=== PATIENT | female | born 1975 | race Caucasian/White ===

== ENCOUNTER 2020-04-29 13:17 | Emergency (ER) | payer BC, OTHER ==
[~2020-04-29] VITALS: Ht 162.6 cm; Wt 50.3 kg
[2020-04-29 13:21] VITALS: BP 105/74
[2020-04-29] MEDS ORDERED: filgrastim 300mcg inj SQ ONE (13:55)
== END 2020-04-29 14:49 | disposition home or self-care (01) ==
LOC: ER 13:18
DX: D70.1 Agranulocytosis secondary to cancer chemotherapy (principal); T45.1X5A Adverse effect of antineoplastic and immunosuppressive drugs, initial encounter; C50.911 Malignant neoplasm of unspecified site of right female breast; C50.912 Malignant neoplasm of unspecified site of left female breast; Z88.8 Allergy status to other drugs, medicaments and biological substances; Z79.899 Other long term (current) drug therapy; Y92.89 Other specified places as the place of occurrence of the external cause
CPT/HCPCS: 96372; 99283; J1442

== ENCOUNTER 2020-09-19 17:07 | Emergency (ER) | payer OTHER ==
--- NOTE | 2020-09-19 18:30 | NUR ---
PT LBT. STATES TO REGISTRATIN THAT SHE IS NUTRAPENIC AND CAN NOT SIT IN THE ER LOBBY AND WILL WAIT OUTSIDE. PT CALLED TO TRIAGE x3, NIL. TALAT RN NOTIFIED
== END 2020-09-19 18:30 | disposition left against medical advice (07) ==
LOC: ER 17:09
DX: D70.3 Neutropenia due to infection (principal); Z53.21 Procedure and treatment not carried out due to patient leaving prior to being seen by health care provider

== ENCOUNTER 2020-09-19 18:38 | Emergency (ER) | payer OTHER | END 2020-09-19 18:52 | disposition left against medical advice (07) | LOC: ER 18:39 | DX: C43.9 Malignant melanoma of skin, unspecified (principal); Z53.21 Procedure and treatment not carried out due to patient leaving prior to being seen by health care provider ==

== ENCOUNTER 2021-04-25 10:04 | Emergency (ER) | payer OTHER ==
[~2021-04-25] VITALS: Ht 162.6 cm; Wt 56.0 kg
[2021-04-25 10:09] VITALS: BP 135/76
--- NOTE | 2021-04-25 10:48 | NUR ---
Patient reports weakness in leg with swelling; ER provider notified.
[2021-04-25] MEDS ORDERED: cephalexin 500mg capsule PO ONE (13:50)
[2021-04-25] MEDS ORDERED: CEPH-585 PO ×2 (14:04)
[2021-04-25] MEDS ORDERED: clindamycin 150mg capsule PO ONE (14:10)
[2021-04-25] MEDS ORDERED: CLIN150C2 PO (14:10)
== END 2021-04-25 14:24 | disposition home or self-care (01) ==
LOC: ER 10:04
DX: Z48.00 Encounter for change or removal of nonsurgical wound dressing (principal); R10.30 Lower abdominal pain, unspecified; Z85.3 Personal history of malignant neoplasm of breast; Z98.890 Other specified postprocedural states; Z88.8 Allergy status to other drugs, medicaments and biological substances
CPT/HCPCS: 99283

== ENCOUNTER 2022-09-11 00:11 | Emergency (ER) | payer OTHER ==
[~2022-09-11] VITALS: Ht 162.6 cm; Wt 65.0 kg
[2022-09-11 00:15] VITALS: BP 114/73
[2022-09-11] MEDS ORDERED: normal saline 1000ml 1,000 ML IV ONE (01:45)
[2022-09-11 01:52] LABS: BASOPHILS % (AUTO) 0.6 % (0-1); EOSINOPHILS # (AUTO) 0.1 X10'3 (0-0.9); EOSINOPHILS % (AUTO) 3.8 % (0-6); HEMATOCRIT 37.8 % (35.0-45.0); HEMOGLOBIN 12.7 g/dl (12.0-16.0); LYMPHOCYTES # (AUTO) 1.1 X10'3 (1.1-4.8); LYMPHOCYTES % (AUTO) 30.3 % (21-51); MEAN CORPUSCULAR HEMOGLOBIN 29.8 PG (27.0-31.0); MEAN CORPUSCULAR HGB CONC 33.7 g/dL (33.0-36.5); MEAN CORPUSCULAR VOLUME 88.6 FL (78-98); MEAN PLATELET VOLUME 7.2 FL (7.4-10.4); MONOCYTES # (AUTO) 0.2 X10'3 (0-0.9); MONOCYTES % (AUTO) 5.9 % (2-12); NEUTROPHILS # (AUTO) 2.2 X10'3 (1.8-7.7); NEUTROPHILS % (AUTO) 59.4 % (42-75); PLATELET COUNT 98 X10'3 (140-440); RED BLOOD COUNT 4.27 X10'6 (4.20-5.60); RED CELL DISTRIBUTION WIDTH 18.4 % (11.5-14.5); WHITE BLOOD COUNT 3.7 X10'3 (4.5-11.0)
[2022-09-11 02:07] LABS: ALANINE AMINOTRANSFERASE 34 U/L (12-78); ALBUMIN 3.8 G/DL (3.4-5.0); ALBUMIN/GLOBULIN RATIO 1.2 (1.1-1.5); ALKALINE PHOSPHATASE 199 IU/L (46-116); ANION GAP 5 (8-16); ASPARTATE AMINO TRANSFERASE 84 U/L (10-37); BILIRUBIN,TOTAL 0.7 MG/DL (0.1-1.0); BLOOD UREA NITROGEN 16 MG/DL (7-18); BUN/CREATININE RATIO 22.5 (10.0-20.0); CALCIUM 9.2 MG/DL (8.5-10.1); CHLORIDE 105 MMOL/L (99-107); CREATINE KINASE 161 U/L (26-192); CREATININE 0.71 MG/DL (0.40-0.90); GLUCOSE 101 MG/DL (70-104); LIPASE 84 U/L (73-393); POTASSIUM 3.7 MMOL/L (3.5-5.1); SODIUM 140 MMOL/L (135-145); TOTAL CARBON DIOXIDE 29.8 MMOL/L (24-32); TOTAL PROTEIN 7.1 G/DL (6.4-8.2); eGFR 89 ML/MIN
[2022-09-11 02:39] LABS: CLARITY,URINE CLEAR (Clear); COLOR,URINE STRAW (Yellow); GLUCOSE, URINE NEGATIVE (Neg); KETONES,URINE NEGATIVE (Neg); LEUKOCYTE ESTERASE ,URINE NEGATIVE (Neg); NITRITES, URINE NEGATIVE (Neg); OCCULT BLOOD,URINE SMALL (Neg); PROTEIN,URINE NEGATIVE (Neg); UA COLLECTION TYPE NON-SPECIFIED; UROBILINOGEN,URINE 0.2 E.U/dL (0.2-1.0)
[2022-09-11 03:01] LABS: BACTERIA,URINE NONE SEEN /HPF (Neg); MUCUS STRANDS NONE SEEN /LPF (Neg); RBC,URINE 0-2 /HPF (0-2); SQUAMOUS EPITHELIAL CELL,UR FEW /LPF (FEW); WBC,URINE NONE SEEN /HPF (0-4)
== END 2022-09-11 03:08 | disposition home or self-care (01) ==
LOC: ER 00:12
DX: J44.9 Chronic obstructive pulmonary disease, unspecified (principal); E86.0 Dehydration; F17.200 Nicotine dependence, unspecified, uncomplicated; Z88.8 Allergy status to other drugs, medicaments and biological substances; Z79.899 Other long term (current) drug therapy
CPT/HCPCS: 80053; 81001; 82550; 83690; 83735; 83874; 85025; 96360; 99284; J7030